=== PATIENT | male | born 1960 | race Caucasian/White ===

== ENCOUNTER → 2019-05-19 | Outpatient (CLI) | payer SELFPAY ==
[2019-05-19 10:49] LABS: AST(SGOT) 30 U/L (15-37); Alanine Aminotransfer ALT/SGPT 57 U/L (16-61); Albumin, Serum 4.2 g/dL (3.2-5.0); Alkaline Phosphatase 113 U/L (45-117); Bilirubin, Direct 0.21 mg/dL (0.00-0.30); Cholesterol 157 mg/dL (200); Globulin 3.4 g/dL (2.2-4.2); High Density Lipoprotein 32 mg/dL; Protein, Total 7.6 g/dL (6.4-8.2); Triglycerides 272 mg/dL; Very Low Density Lipoprotein 54 mg/dL (5-40)
== END | disposition home or self-care (01) ==
LOC: LAB 09:37
DX: I25.10 Atherosclerotic heart disease of native coronary artery without angina pectoris (principal); I21.21 ST elevation (STEMI) myocardial infarction involving left circumflex coronary artery; E78.5 Hyperlipidemia, unspecified; R07.9 Chest pain, unspecified
CPT/HCPCS: 36415; 80061; 80076

== ENCOUNTER → 2020-04-07 10:13 | Outpatient (CLI) | payer MEDICAID, SELFPAY ==
[2020-04-07 08:41] VITALS: BMI 26.4
[2020-04-07 11:09] LABS: Anion Gap 4 (5-15); BUN 23 mg/dL (7-18); BUN/Creat Ratio 22.8 RATIO (10-20); Calcium,Total 9.2 mg/dL (8.5-10.1); Chloride 107 mmol/L (98-107); Creatinine, Serum 1.01 mg/dL (0.70-1.30); EST Glomerular Filtration Rate 80 mL/min (>60); Est Glom Filt Rate - Afr Amer 97 mL/min (>60); Glucose 95 mg/dL (74-106); Potassium 4.6 mmol/L (3.5-5.1); Sodium Level 139 mmol/L (136-145)
== END ==
PROVIDERS: PCP Family Medicine; Referring Provider Internal Medicine Cardiovascular Disease; Visit Provider Internal Medicine Cardiovascular Disease
DX: R55 Syncope and collapse (principal); Z95.5 Presence of coronary angioplasty implant and graft
CPT/HCPCS: 36415; 80048

== ENCOUNTER → 2020-04-12 05:54 | Outpatient (CLI) | payer MEDICAID, SELFPAY ==
[2020-04-07 08:41] VITALS: BMI 26.4
--- NOTE | 2020-04-12 16:58 | STRESSREP_ITS ---
Stress Test Report Exercise myocardial perfusion stress test. 59-year-old man with a history of chest pain. Stress protocol: Resting EKG demonstrates normal sinus rhythm with a rate of 61 bpm normal intervals are noted resting blood pressure is 142/82 mmHg. Patient exercised according to regular Kurtis protocol for a total duration of 4 minutes. The maxi mum heart rate was 144 bpm which was 90% of max impacted heart rate the maximum workload was 5.8 metabolic equivalents. At rest there were no ST or T wave changes noted suggest ischemia at peak exercise upsloping ST changes were noted with no meet the criteria for ischemia. No clinical angina was noted the test was terminated due to the target heart rate being achieved and dyspnea. The peak blood pressure of 210/88 mmHg. Myocardial perfusion protocol. 11.8 mCi of technetium 99m sestamibi was injected at rest. The patient exercised according to regular Kurtis protocol for 4 minutes and at peak exercise 34.3 mCi of technetium 99m sestamibi was injected stress images were obtained stress and rest images were reconstructed and compared in the short axis vertical long horizontal long axis. Gated images were also obtained Perfusion SPECT analysis: Review of the stress images demonstrate normal uptake of tracer noted in all areas of the myocardium the resting images similar demonstrate normal uptake of tracer noted in all areas of myocardium. No reversibility is noted suggest ischemia no previous infarct is noted. Gated SPECT analysis: The gated ejection fraction is noted to be 60%. Conclusion: Normal exercise myocardial perfusion stress test with no evidence of ischemia at a low to moderate workload. Hypertensive response to exercise. No obvious ischemia present.
== END ==
PROVIDERS: PCP Family Medicine; Referring Provider Internal Medicine Cardiovascular Disease; Visit Provider Internal Medicine Cardiovascular Disease
DX: I25.10 Atherosclerotic heart disease of native coronary artery without angina pectoris (principal); R55 Syncope and collapse; Z95.5 Presence of coronary angioplasty implant and graft
CPT/HCPCS: 78452; 93017; A9500; A4216

== ENCOUNTER 2020-04-13 06:58 | Day surgery (SDC) | payer MEDICAID, SELFPAY ==
[2020-04-07 08:41] VITALS: BMI 26.4
[2020-04-12 11:33] VITALS: BMI 26.4
--- NOTE | 2020-04-13 08:00 | CL.IE_ITS ---
Patient: RASHEEDA ARAMBULA Study Date: 04/13/2020 Performing: Wayne Pérez MD : 1960 Age: 59 Gender: male PROCEDURES PERFORMED [id number] OF LOOP RECORDER INDICATIONS Syncope PROCEDURE DETAILS The patient was brought to the Catheterization Lab in the postabsorptive nonsedated state. Infor med consent was obtained prior to the procedure. Local anesthetic was given subcutaneously to the le ft upper chest area with Lidocaine 2%. Incision was made to the left upper chest. ICM Loop Recorder w as inserted. Steri-strips applied to Lt chest area. Instrument, sponge, and needle counts were noted to be normal. The patient tolerated the procedure well. Estimated Blood Loss: < 10 mls IMPLANTED / EX-PLANTED DEVICES IMPLANTED DEVICE(S): ICM Loop Recorder - Hand Router Operator: [employer], Model # [id number] [id number] , Serial # [id number] DEVICE PARAMETERS CONCLUSIONS / RECOMMENDATIONS Device Conclusions: Successful implantation of a patient activated loop recorder. Device Recommendations: Follow up with Primary Care Physician PROCEDURE MEDICATIONS Versed 1 mg IV Oxygen: 2 L/min via nasal cannula Antibiotic given in appropriate timeframe. Clindamycin 900 mg IV 04/13/2020 07:40:35 Signed By Wayne Pérez MD On 04/13/2020 07:59:39 Wayne Pérez MD
== END 2020-04-13 09:00 | disposition home or self-care (01) ==
LOC: CLSP 06:59
PROVIDERS: PCP Family Medicine; Referring Provider Internal Medicine Cardiovascular Disease; Visit Provider Internal Medicine Cardiovascular Disease
DX: R55 Syncope and collapse (principal); I25.10 Atherosclerotic heart disease of native coronary artery without angina pectoris; I25.2 Old myocardial infarction; I10 Essential (primary) hypertension; E78.5 Hyperlipidemia, unspecified; J44.9 Chronic obstructive pulmonary disease, unspecified; Z95.5 Presence of coronary angioplasty implant and graft; Z79.899 Other long term (current) drug therapy; Z87.891 Personal history of nicotine dependence
CPT/HCPCS: 33285; 99152; 99153; J7040

== ENCOUNTER 2021-10-26 06:18 | Day surgery (SDC) | payer BC, MEDICAID, SELFPAY ==
[2021-10-25 08:12] VITALS: BMI 28.8
[2021-10-26 06:34] LABS: Hemoglobin 19.2 g/dL (13.0-16.5); Mean Corp Hgb Conc 33.4 g/dL (32-36); Mean Corpuscular Hgb 31.8 pg (27.0-32.0); Mean Platelet Vol. 10.5 fl (6.2-12.0); Platelet Count 201 K/mm3 (150-450); RBC Distribution Width CV 13.9 % (11.6-14.6); RBC Distribution Width SD 49.1 fl (35.1-43.9); Red Blood Count 6.04 M/mm3 (4.6-6.2)
[2021-10-26 06:37] LABS: Hematocrit 57.4 % (40-54)
[2021-10-26 06:41] LABS: Scan Indicated on CBC? Y/N YES- FLAGS NOTED
[2021-10-26 06:55] LABS: Anion Gap 7 (5-15); BUN 22 mg/dL (7-18); BUN/Creat Ratio 19.1 RATIO (10-20); Chloride 105 mmol/L (98-107); Creatinine, Serum 1.15 mg/dL (0.70-1.30); EST Glomerular Filtration Rate 68 mL/min (>60); Est Glom Filt Rate - Afr Amer 83 mL/min (>60); Estimated Creatinine Clearance 75.27 ml/min; Glucose 122 mg/dL (74-106); Potassium 4.2 mmol/L (3.5-5.1); Sodium Level 140 mmol/L (136-145)
--- NOTE | 2021-10-26 07:44 | CL.IE_ITS ---
Patient: RASHEEDA ARAMBULA Study Date: 10/26/2021 Performing: Wayne Pérez MD : 1960 Age: 60 Gender: male PROCEDURES PERFORMED [id number])REMOVAL OF LOOP RECORDER INDICATIONS PROCEDURE DETAILS The patient was brought to the Catheterization Lab in the postabsorptive nonsedated state. Informed consent was obtained prior to the procedure. Incision was made to the left upper chest. The patient tolerated the procedure well. Estimated Blood Loss: 2 ml's IMPLANTED / EX-PLANTED DEVICES DEVICE PARAMETERS CONCLUSIONS / RECOMMENDATIONS PROCEDURE MEDICATIONS Versed 1 mg IV Oxygen: 2 L/min via nasal cannula Clindamycin 900 mg IV 10/26/2021 07:29:21 Signed By Wayne Pérez MD On 10/26/2021 07:43:51 Wayne Pérez MD
[2021-10-26 12:38] LABS: Pathologist Review Reviewed
== END 2021-10-26 09:05 | disposition home or self-care (01) ==
LOC: CLSP 06:20
PROVIDERS: PCP Family Medicine; Referring Provider Internal Medicine Cardiovascular Disease; Visit Provider Internal Medicine Cardiovascular Disease
DX: Z46.89 Encounter for fitting and adjustment of other specified devices (principal); I25.10 Atherosclerotic heart disease of native coronary artery without angina pectoris; I25.2 Old myocardial infarction; E78.5 Hyperlipidemia, unspecified; I10 Essential (primary) hypertension; Z95.5 Presence of coronary angioplasty implant and graft; Z79.82 Long term (current) use of aspirin; Z79.899 Other long term (current) drug therapy
CPT/HCPCS: 33286; 36415; 80048; 85027; 99152; J7040

== ENCOUNTER → 2021-11-03 | Outpatient (CLI) | payer MEDICARE, MEDICAID, SELFPAY ==
--- NOTE | 2021-11-03 12:20 | PFTCOMP ---
This 60-year-old patient had complete pulmonary function studies on 11/03/2021 for COPD. Spirometry pre and postbronchodilator showed mild airway obstruction, with no significant bronchodilator response. Forced vital capacity was normal. Lung volume studies by plethysmography showed mild reduction in total lung capacity, inspiratory capacity, and functional residual capacity, suggestive of mild restriction. Clinical and radiographic correlation are recommended. There is no evidence of hyperinflation; RV and RV/TLC were reduced at 6 and 8% predicted, respectively. Request technical review. Diffusing capacity was moderately reduced, with DLCO 46% predicted and DL/VA 55% predicted. Again, clinical and radiographic correlation are recommended. There are no old studies immediately available for comparison. [id number].
== END | disposition home or self-care (01) ==
PROVIDERS: PCP Family Medicine; Referring Provider Internal Medicine Critical Care Medicine; Visit Provider Internal Medicine Critical Care Medicine
DX: J44.9 Chronic obstructive pulmonary disease, unspecified (principal)
CPT/HCPCS: 94060; 94726; 94729

== ENCOUNTER → 2021-11-07 | Outpatient (CLI) | payer MEDICARE, MEDICAID, SELFPAY ==
--- NOTE | 2021-11-07 16:24 | CT_ITS ---
STUDY: LOW DOSE CT LUNG CANCER SCREENING REASON FOR EXAM: Male, 60 years old. Screening. 54 pack-year history. History of COPD, emphysema and cardiac stent RADIATION DOSAGE (If Supplied By Facility): CTDIvol = ( 3.18 ) mGy, DLP = ( 94.89 ) mGycm TECHNIQUE: No contrast was administered. Low dose technique was utilized (average mAS-38 and kVp 120). 1.25 mm axial source images with a slice interval of 1.25-mm were reconstructed in lung windows. 2.5 mm axial source images with a slice interval of 2.5-mm were reconstructed in lung windows. 5.0 mm axial source images with a slice interval of 5.0-mm were reconstructed in soft tissue windows. COMPARISON: None. NODULES: Total lung nodules (excluding granulomas): 0 Emphysema: Diffuse emphysematous changes with septal thickening and bilateral dependent change. Endobronchial lesion: Not Aorta: Minimal atherosclerotic changes without aneurysm. CORONARY ARTERIES: Coronary artery calcification are present. There appears to be a stent on the left. Heart: Normal in size Pulmonary artery: Normal Mediastinal nodes: There is diffuse mediastinal lymphadenopathy is appreciated prevascular lymph adenopathy measuring over 1 cm in diameter. It is also a 1.4 x 1.3 x 2.4 cm paratracheal lymph node. There are conglomerate subcarinal lymph nodes. Lymph nodes are also suspected in both felipe. Other chest and abdominal findings: Degenerative changes of the thoracic spine. CT/Low Dose CT Lung Screening IMPRESSION: Lung-RADS category 1 - Continue annual screening with LDCT in 12 months. IMPORTANT NOTES FOR USE: ACR Lung-RADS Version 1.1 Assessment Categories Release Date: 2018 Category: Coded 0-4 bases on nodule(s) with highest degree of suspicion. Negative screen is defined as categories 1 and 2; a positive screen is defined as categories 3 and 4. Category 3 and 4A nodules that are unchanged on interval CT should be coded as category 2, and individuals returned to screening in 12 months. Category 4X: Category 3 or 4 nodules with additional imaging findings that increase the suspicion of lung cancer, such as spiculation, GGN that doubles in size in 1 year, enlarged lymph notes, etc. Category Modifiers: S (significant finding unrelated to lung cancer) Electronically Signed: Evangelista Guardado DO at 17:35 EDT Reading Location ID and State: [address] [place] [address] Tel [phone], Service support ,
== END | disposition home or self-care (01) ==
PROVIDERS: PCP Family Medicine; Referring Provider Internal Medicine Critical Care Medicine; Visit Provider Internal Medicine Critical Care Medicine
DX: Z87.891 Personal history of nicotine dependence (principal)
CPT/HCPCS: 71271

== ENCOUNTER → 2021-11-15 | Outpatient (CLI) | payer MEDICARE, MEDICAID, SELFPAY | END | disposition home or self-care (01) | LOC: SL 19:55 | PROVIDERS: PCP Family Medicine; Referring Provider Internal Medicine Critical Care Medicine; Visit Provider Internal Medicine Critical Care Medicine | DX: G47.33 Obstructive sleep apnea (adult) (pediatric) (principal) | CPT/HCPCS: 95810 ==

== ENCOUNTER → 2021-11-17 | Outpatient (CLI) | payer MEDICARE, MEDICAID, SELFPAY ==
[2021-11-17 12:30] VITALS: PULSE 74; PULSE 80; PULSE 82; PULSE 83; PULSE 86; PULSE 89; PULSE 90; O2SAT 84; O2SAT 86; O2SAT 90; O2SAT 91; O2SAT 93; O2SAT 95
--- NOTE | 2021-11-17 12:53 | CPS ---
pt arrived on room air. Pts sats are 86% on rooom air. Placed him on 2L nc to start walk. Sats increased to 93%. At 2 Min sats were 84% on 2L increased to 3L nc. sats increased to 95%. At 5 Min pt sats 86% so increased to 4L NC. Walked the remainder of test on 4L nc and did well sats 91% and above.
--- NOTE | 2021-11-17 14:36 | PCM.PSN.6M ---
PSN 6 Minute Walk Test 6 Minute Walk Test 6 Minute Walk Test: 6 Minute Walk Test PSN:6-Minute Walk Test Start: 11/17/21 12:46 Freq: Status: Active Protocol: [id number] Document 11/17/21 12:30 EW (Rec: 11/17/21 12:56 EW [id number]) 6 Minute Walk Test Date Performed 11/17/21 Time Performed 12:30 Height 6 ft Weight: 99.79 kg Weight in Pounds 220.[address]: Kurtis Newman Assistive device used: None Pre-test Oxygen Delivery Method Room Air Pulse Ox (%) 86 Pulse Rate (60-100 beats/min) 74 Dyspnea Maritza Scale (0-10) 3 Exertion Maritza Scale (6-20) 6 1st minute Oxygen Flow Rate (L/min) (L/min) 2 Oxygen Delivery Method Nasal Cannula Pulse Ox (%) 90 Pulse Rate (60-100 beats/min) 80 2nd minute Oxygen Flow Rate (L/min) (L/min) 3 Oxygen Delivery Method Nasal Cannula Pulse Ox (%) 84 Pulse Rate (60-100 beats/min) 83 3rd minute Oxygen Flow Rate (L/min) (L/min) 3 Oxygen Delivery Method Nasal Cannula Pulse Ox (%) 95 Pulse Rate (60-100 beats/min) 82 4th minute Oxygen Flow Rate (L/min) (L/min) 3 Oxygen Delivery Method Nasal Cannula Pulse Ox (%) 90 Pulse Rate (60-100 beats/min) 89 5th minute Oxygen Flow Rate (L/min) (L/min) 3 Oxygen Delivery Method Nasal Cannula Pulse Ox (%) 86 Pulse Rate (60-100 beats/min) 90 6th minute Oxygen Flow Rate (L/min) (L/min) 4 Oxygen Delivery Method Nasal Cannula Pulse Ox (%) 91 Pulse Rate (60-100 beats/min) 86 Post-test Oxygen Flow Rate (L/min) (L/min) 4 Oxygen Delivery Method Nasal Cannula Pulse Ox (%) 93 Pulse Rate (60-100 beats/min) 80 Dyspnea Maritza Scale (0-10) 3 Exertion Maritza Scale (6-20) 11 Full Laps Walked 14 Partial Lap, Number of Tiles Walked 0 Total Distance Walked (ft) 826 11/17/21 12:53 Cardiopulmonary Services by Tamara Bennett pt arrived on room air. Pts sats are 86% on rooom air. Placed him on 2L nc to start walk. Sats increased to 93%. At 2 Min sats were 84% on 2L increased to 3L nc. sats increased to 95%. At 5 Min pt sats 86% so increased to 4L NC. Walked the remainder of test on 4L nc and did well sats 91% and above. Initialized on 11/17/21 12:53 - END OF NOTE Interpretation Interpretation: Patient arrived saturating 86% on room air. The patient was then placed on 2 L nasal cannula with improvement to 90%. The patient then desaturated again and his second minute and fifth minute requiring a total of 4 L nasal cannula to maintain saturations throughout testing. In total, the patient traveled 826 feet over the course of 6 minutes with no assistive devices and 2 breaks. No significant tachycardia was noted. These findings are consistent with a respiratory limitation exercise tolerance. Recommendations Recommendations: The patient requires 2 L/min supplemental oxygen at rest and should be using 4 L/min with ambulation.
== END | disposition home or self-care (01) ==
LOC: PSN 12:20
PROVIDERS: PCP Family Medicine; Referring Provider Internal Medicine Critical Care Medicine; Visit Provider Internal Medicine Critical Care Medicine
DX: J44.9 Chronic obstructive pulmonary disease, unspecified (principal)
CPT/HCPCS: 94618

== ENCOUNTER → 2021-12-05 | Outpatient (CLI) | payer MEDICARE, MEDICAID, SELFPAY ==
--- NOTE | 2021-12-05 07:20 | ECHOD_ITS ---
Reason For Study: Old CT Procedure This was a 2D Doppler, Color Flow transthoracic echocardiogram. Exam performed in department. Left Ventricle Normal LV size. Left ventricular systolic function is normal. The estimated ejection fraction is 55 %. No regional wall motion abnormalities noted. Right Ventricle Normal RV size. Normal systolic function. Atria Normal left atrium. Normal right atrium. Mitral Valve Normal mitral valve. Mild (1+) eccentric mitral valve insufficiency. Tricuspid Valve Normal tricuspid valve. Mild (1+) tricuspid valve insufficiency. Pulmonary artery systolic pressure is 40 mmHg. Aortic Valve Trisinus/trileaflet aortic valve. Mild focal aortic valve thickening. Pulmonic Valve Normal pulmonic valve. Great Vessels Normal aortic root. The pulmonary artery is normal size. Normal inferior vena cava. Pericardium/Pleural No pericardial effusion. MMode/2D Measurements & Calculations LVIDd: 4.6 cm IVSd: 1.1 cm LA dimension: 4.3 cm LVIDs: 2.9 cm LVPWd: 1.0 cm RVDd: 3.9 cm FS: 37.4 % LAV(MOD-sp2): 47.0 ml Time Measurements MV dec time: 0.21 sec Doppler Measurements & Calculations MV E max herminio: 53.7 cm/sec Lat Peak E' Herminio: 10.5 cm/sec Med Peak E' Herminio: 5.9 cm/sec MV A max herminio: 60.5 cm/sec E/E' lat: 5.1 E/E' med: 9.1 MV E/A: 0.89 MV V2 max: 71.4 cm/sec MV P1/2t max herminio: 68.9 cm/sec Ao V2 max: 115.3 cm/sec MV max P.0 mmHg MV P1/2t: 72.6 msec Ao max P.3 mmHg MV V2 mean: 39.3 cm/sec Ao V2 mean: 78.5 cm/sec MV mean P.74 mmHg MV dec slope: 277.9 cm/sec2 Ao mean P.9 mmHg MV V2 VTI: 21.1 cm MVA(P1/2t): 3.0 cm2 Ao V2 VTI: 26.5 cm LV V1 max: 109.8 cm/sec MR max herminio: 441.9 cm/sec PA V2 max: 71.1 cm/sec LV V1 max P.8 mmHg MR max P.1 mmHg LV V1 mean P.5 mmHg LV V1 mean: 74.5 cm/sec LV V1 VTI: 24.1 cm TR max herminio: 295.9 cm/sec TR max P.1 mmHg ECHO/Echo Complete Interpretation Summary Normal LV size. Left ventricular systolic function is normal. The estimated ejection fraction is 55 %. Pulmonary artery systolic pressure is 40 mmHg. Ordering Physician: Cheri Hurt Referring Physician: MD Johnny Marks Performed By: Joaquín Mojica, [facility]
== END | disposition home or self-care (01) ==
LOC: CVS 07:20
PROVIDERS: PCP Family Medicine; Referring Provider Nurse Practitioner Acute Care; Visit Provider Nurse Practitioner Acute Care
DX: R06.02 Shortness of breath (principal); I25.2 Old myocardial infarction
CPT/HCPCS: 93306

== ENCOUNTER → 2022-04-11 | Outpatient (CLI) | payer MEDICARE, MEDICAID, SELFPAY | END | disposition home or self-care (01) | PROVIDERS: PCP Family Medicine; Referring Provider Internal Medicine Critical Care Medicine; Visit Provider Internal Medicine Critical Care Medicine | DX: G47.31 Primary central sleep apnea (principal) | CPT/HCPCS: 95811 ==

== ENCOUNTER → 2022-09-15 | Outpatient (CLI) | payer MEDICARE, MEDICAID, SELFPAY ==
--- NOTE | 2022-09-17 07:06 | PFT ---
INTRODUCTION: The patient is a 61-year-old male who presents for pulmonary function studies secondary to a diagnosis of COPD. Respiratory therapy reported good patient effort. Bronchodilators were used during testing. INTERPRETATION: Forced expiration spirometry demonstrates the presence of a mild large airways obstructive ventilatory defect. There was no significant response to aerosolized bronchodilators. Spirograms are of good quality but do not plateau indicating slow emptying of the lungs. Body plethysmography was performed and revealed a decreased TLC 6.21 L, 82% of predicted, indicative of a mild restrictive ventilatory impairment. Diffusing capacity by single breath CO is significantly reduced at 26% of predicted. IMPRESSION: Irreversible mild mixed ventilatory defect with disproportionate reduction in diffusion capacity.
== END | disposition home or self-care (01) ==
PROVIDERS: PCP Family Medicine; Referring Provider Nurse Practitioner Acute Care; Visit Provider Nurse Practitioner Acute Care
DX: J44.9 Chronic obstructive pulmonary disease, unspecified (principal)
CPT/HCPCS: 94060; 94726; 94729

== ENCOUNTER → 2022-11-10 | Outpatient (CLI) | payer MEDICARE, MEDICAID, SELFPAY ==
--- NOTE | 2022-11-10 17:47 | STRESSREP ---
Stress Test Report Pharmacologic myocardial perfusion stress test. 61-year-old man with a history of coronary artery disease previous myocardial infarction in 2019. Resting EKG demonstrates sinus bradycardia with a rate of 55 bpm. Resting blood pressure is 100/60 mmHg. 0.4 mg of regadenoson was infused per usual protocol followed by rapid intravenous saline flush injection. Continuous EKG monitoring was performed. The maximum heart rate was 82 bpm which was 52% of max impacted heart rate the maximum workload was 1 metabolic equivalent. At rest there were no ST or T wave changes noted to suggest ischemia and at peak infusion nonspecific ST changes were noted which did not meet the criteria for ischemia. No clinical angina is noted. The final blood pressure was 112/62 mmHg. Myocardial perfusion protocol. 14.5 mCi of technetium 99m sestamibi was injected at rest. 0.4 mg of regadenoson was infused per usual protocol. At peak infusion 44.1 mCi of technetium 99m sestamibi was injected stress images were obtained stress and rest images were reconstructed and compared in the short axis vertical long and horizontal long axis. Gated images were also obtained. Perfusion SPECT analysis: Review of the stress images demonstrate normal uptake of tracer noted in all areas of the myocardium. The resting images similar demonstrated normal uptake of tracer noted in all areas of the myocardium. No areas of reversibility are noted to suggest ischemia and no previous infarct is noted. Gated SPECT analysis: The gated ejection fraction is 49%. Conclusion: Normal pharmacologic myocardial perfusion stress test. Low normal ejection fraction.
== END | disposition home or self-care (01) ==
LOC: CVS 06:51
PROVIDERS: PCP Family Medicine; Referring Provider Nurse Practitioner Gerontology; Visit Provider Nurse Practitioner Gerontology
DX: I25.10 Atherosclerotic heart disease of native coronary artery without angina pectoris (principal); Z95.5 Presence of coronary angioplasty implant and graft
CPT/HCPCS: 78452; 93017; A9500; A4216; J2785